=== PATIENT | female | born 1960 | race Two or more races ===

== ENCOUNTER → 2016-07-26 | Outpatient (CLI) | payer BC ==
--- NOTE | 2016-07-26 12:59 | EKG ---
[address] [address] Measurements Intervals [place] Rate: 85 P: 71 MO: 145 QRS: -19 QRSD: 79 T: 73 QT: 373 QTc: 416 Interpretive Statements SINUS RHYTHM WITH FREQUENT VENTRICULAR PREMATURE COMPLEXES POSSIBLE RIGHT ATRIAL ENLARGEMENT ABNORMAL RHYTHM ECG No previous ECG available for comparison Electronically Signed On 07-26-16 16:14:26 [facility] by Graham Villarreal [email or web address]
[2016-07-26 13:21] LABS: HEMATOCRIT 45.5 % (37.0-47.0); HEMOGLOBIN 15.5 g/dL (12.0-16.0); MEAN CORPUSCULAR HEMOGLOBIN 32.3 PG (27-31); MEAN CORPUSCULAR HGB CONC 34.1 g/dL (33-37); MEAN PLATELET VOLUME 9.6 FL (7.4-12.2); RDW COEFFICIENT OF VARIATION 13.8 % (11.5-14.5); RED BLOOD COUNT 4.8 10^6/uL (4.20-5.40); WHITE BLOOD COUNT 6.97 10^3/uL (4.8-10.8)
[2016-07-26 13:56] LABS: TROPONIN I 0.01 ng/mL (< 0.040)
[2016-07-26 14:10] LABS: ASPARTATE AMINO TRANSFERASE 22 IU/L (8-39); BLOOD UREA NITROGEN 14 mg/dL (7-22); CALCIUM 9.7 mg/dL (8.7-10.7); CHLORIDE 105 meq/L (98-112); CREATININE 0.7 mg/dL (0.50-1.20); EST GLOMERULAR FILTRATION > 60 (>60 ml/min/1.73m(2)); GLUCOSE 104 mg/dL (78-110); POTASSIUM 3.8 meq/L (3.8-5.2); SODIUM 139 meq/L (135-145); TOTAL PROTEIN 7.6 g/dL (6.1-8.0)
[2016-07-26 16:49] LABS: CREATINE KINASE MB 0.3 NG/DL (0.00-5.00)
== END ==
LOC: LAB 12:40
PROVIDERS: ATTEND Obstetrics & Gynecology Gynecology
DX: R10.13 Epigastric pain (principal); I49.9 Cardiac arrhythmia, unspecified
CPT/HCPCS: 36415; 80053; 82550; 82553; 84484; 85027; 87338; 93005; 93010

== ENCOUNTER → 2016-07-28 | Outpatient (CLI) | payer BC ==
--- NOTE | 2016-07-28 16:06 | DI ---
ABDOMINAL ULTRASOUND, 07/28/2016 10:21 AM: Clinical History: Pulsatile mass in the abdomen Previous Exam: None at this facility. Scans are performed through the right and left upper quadrants in multiple projections. The gallbladder is well distended and has a normal wall thickness. There are no gall stones. Common h epatic duct measures The visualized portions of the right and left lobes of the liver, both kidne ys, and the spleen are normal. The pancreas is unremarkable. The aorta is unremarkable. READING: Normal abdominal ultrasound. No evidence of aortic aneurysm. ICD9:
== END ==
LOC: US 10:15
PROVIDERS: ATTEND Obstetrics & Gynecology Gynecology
DX: R19.00 Intra-abdominal and pelvic swelling, mass and lump, unspecified site (principal); R10.13 Epigastric pain
CPT/HCPCS: 76700